=== PATIENT | female | born 1975 | race Caucasian/White ===

== ENCOUNTER 2017-08-11 09:12 | Emergency (ER) | payer SELFPAY ==
[~2017-08-11] VITALS: Ht 172.7 cm; Wt 72.6 kg
[~2017-08-11 09:12] MED LIST: CEPH500 PO; CYCL10 PO; IBUP600 PO; IBUP800 PO; Ultram50 MG PO; Veetids 500500 MG PO
[2017-08-11] MEDS ORDERED: Sudogest30 MG PO (10:07)
[2017-08-11] MEDS ORDERED: Flonase 0.05% N16 GM (10:07)
== END 2017-08-11 10:18 | disposition home or self-care (01) ==
LOC: ER 09:12
DX: J06.9 Acute upper respiratory infection, unspecified (principal); Z88.5 Allergy status to narcotic agent
CPT/HCPCS: 87081; 87147; 87430; 99283; J1100

== ENCOUNTER → 2020-09-23 | Outpatient (CLI) | payer OTHER ==
[~2020-09-23] MED LIST changes: +Flonase 0.05% N16 GM; +Sudogest30 MG PO
[2020-09-23 17:55] LABS: BASOPHILS ABSOLUTE AUTO 0.07 K/mm3 (0.00-0.23); BASOPHILS PERCENT AUTO 1 % (0-2); EOSINOPHILS ABSOLUTE AUTO 0.23 K/mm3 (0.00-0.68); EOSINOPHILS PERCENT AUTO 3 % (0-6); Hematocrit 38.6 % (33.0-51.0); Hemoglobin 13.2 g/dL (11.5-16.0); IMMATURE GRAN ABSOLUTE AUTO 0.02 K/mm3 (0.00-0.10); IMMATURE GRAN PERCENT AUTO 0 % (0-1); LYMPHOCYTES ABSOLUTE AUTO 2.77 K/mm3 (0.84-5.20); LYMPHOCYTES PERCENT AUTO 30 % (21-46); MONOCYTES ABSOLUTE AUTO 0.52 K/mm3 (0.16-1.47); MONOCYTES PERCENT AUTO 6 % (4-13); Mean Corpuscular HGB 29.5 pg (26.0-34.0); Mean Corpuscular HGB Conc 34.2 g/dL (31.5-36.5); Mean Corpuscular Volume 86 fL (80-100); Mean Platelet Volume 10.7 fL (9.1-12.4); NEUTROPHILS ABSOLUTE AUTO 5.64 K/mm3 (1.96-9.15); NEUTROPHILS PERCENT AUTO 61 % (41-73); Platelet Count 366 K/mm3 (150-400); RDW Coefficient Variation 12.5 % (11.7-14.2); RDW Standard Deviation 39.1 fL (35.1-46.3); Red Blood Cell Count 4.48 M/mm3 (3.80-5.20); White Blood Cell Count 9.25 K/mm3 (4.00-11.30)
[2020-09-23 18:16] LABS: Albumin/Globulin Ratio 1.1 (0.8-1.8); Bilirubin, Total 0.3 mg/dL (0.1-1.0); Bun/Creatinine Ratio 10.1 (12.0-20.0); Calcium, Blood 9.2 mg/dL (8.5-10.1); Creatinine, Blood 1.09 mg/dL (0.40-1.00); Globulin, Blood 3.7 g/dL (2.2-4.0); Potassium, Blood 3.8 mmol/L (3.5-5.5); Thyroid Stimulating Hormone 1.76 uIU/mL (0.360-4.800); Total Protein, Blood 7.7 g/dL (6.4-8.2)
== END | disposition home or self-care (01) ==
LOC: LAB SHORT 17:47 → LAB 17:47
PROVIDERS: Physician Assistant
DX: R53.83 Other fatigue (principal)
CPT/HCPCS: 80053; 84443; 85025

== ENCOUNTER 2021-06-28 10:59 | Day surgery (SDC) | payer OTHER ==
[~2021-06-28] VITALS: Ht 172.7 cm; Wt 94.9 kg
--- NOTE | 2021-06-28 11:56 | NUR ---
06/28/21 1156 BELIA BRO 1% LIDOCAINE 4MLS INJECTED BY DR. GARCIA INTO RIGHT HAND AT START OF CASE
--- NOTE | 2021-06-28 12:31 | NUR ---
06/28/21 1231 BRAXTON ROWE PT RECIEVED ZOFRAN FOR NAUSEA , STATES IT IS A LITTLE BETTER. PAIN IS 7/10 HEADACHE- PT DAILY CAFFEINE DRINKER. PT DECLINES TAKING IV PAIN MEDICATION, WOULD LIKE TO TAKE EXCEDRINE ONCE HOME
== END 2021-06-28 13:17 | disposition home or self-care (01) ==
LOC: ORSCSDS 10:59
PROVIDERS: Orthopaedic Surgery
PROC: 01N50ZZ Release Median Nerve, Open Approach (ICD-10-PCS; principal; 2021-06-28 12:30)
DX: G56.01 Carpal tunnel syndrome, right upper limb (principal); E66.9 Obesity, unspecified; Z68.31 Body mass index [BMI] 31.0-31.9, adult; Z79.899 Other long term (current) drug therapy
CPT/HCPCS: J0690; J1100; J2250; J2405; J3010; J7120

== ENCOUNTER 2021-08-30 22:44 | Emergency (ER) | payer OTHER | END 2021-08-30 23:54 | disposition left against medical advice (07) | LOC: ER 22:44 | DX: R19.7 Diarrhea, unspecified (principal); Z53.21 Procedure and treatment not carried out due to patient leaving prior to being seen by health care provider | CPT/HCPCS: 99281 ==

== ENCOUNTER → 2021-11-01 | Outpatient (CLI) | payer OTHER ==
[2021-11-03 08:10] LABS: HPV 16 Negative (Negative); HPV 18 Negative (Negative); HPV OTHER HR TYPES Negative (Negative)
== END | disposition home or self-care (01) ==
LOC: LAB 17:19 → LAB SHORT 17:19
PROVIDERS: Obstetrics & Gynecology
DX: Z01.419 Encounter for gynecological examination (general) (routine) without abnormal findings (principal)
CPT/HCPCS: 87624; G0123

== ENCOUNTER 2023-01-30 11:54 | Day surgery (SDC) | payer OTHER ==
[~2023-01-30] VITALS: Ht 172.7 cm; Wt 84.2 kg
[2023-01-30] MEDS ORDERED: EXCEDRIN MIGRAINE (13:16)
[2023-01-30 14:55] VITALS: BP 117/71
== END 2023-01-30 15:40 | disposition home or self-care (01) ==
LOC: ORSCSDS 11:54
PROVIDERS: Orthopaedic Surgery
PROC: 01N50ZZ Release Median Nerve, Open Approach (ICD-10-PCS; principal; 2023-01-30 13:30)
DX: G56.02 Carpal tunnel syndrome, left upper limb (principal)
CPT/HCPCS: J0690; J1100; J2001; J2250; J2405; J2704; J3010; J7120

== ENCOUNTER 2023-02-11 09:30 | Observation (INO) | payer OTHER ==
[~2023-02-11] VITALS: Ht 172.7 cm; Wt 81.7 kg
[~2023-02-11 09:30] MED LIST changes: +EXCEDRIN MIGRAINE
[2023-02-11 10:28] LABS: BASOPHILS PERCENT AUTO 1 % (0-2); EOSINOPHILS ABSOLUTE AUTO 0.38 K/mm3 (0.00-0.68); EOSINOPHILS PERCENT AUTO 3 % (0-6); Hematocrit 44.5 % (33.0-51.0); IMMATURE GRAN ABSOLUTE AUTO 0.03 K/mm3 (0.00-0.10); IMMATURE GRAN PERCENT AUTO 0 % (0-1); LYMPHOCYTES ABSOLUTE AUTO 2.04 K/mm3 (0.84-5.20); LYMPHOCYTES PERCENT AUTO 15 % (21-46); MONOCYTES ABSOLUTE AUTO 0.82 K/mm3 (0.16-1.47); MONOCYTES PERCENT AUTO 6 % (4-13); Mean Corpuscular HGB 29.8 pg (26.0-34.0); Mean Corpuscular HGB Conc 33.7 g/dL (31.5-36.5); Mean Corpuscular Volume 88 fL (80-100); Mean Platelet Volume 11.1 fL (9.1-12.4); NEUTROPHILS PERCENT AUTO 75 % (41-73); Platelet Count 408 K/mm3 (150-400); RDW Coefficient Variation 12.5 % (11.7-14.2); RDW Standard Deviation 40.2 fL (35.1-46.3); Red Blood Cell Count 5.04 M/mm3 (3.80-5.20); White Blood Cell Count 13.37 K/mm3 (4.00-11.30)
[2023-02-11 10:55] LABS: Albumin, Blood 3.7 g/dL (3.4-5.0); Albumin/Globulin Ratio 0.8 (0.8-1.8); Bilirubin, Total 0.6 mg/dL (0.1-1.0); Bun/Creatinine Ratio 15.2 (12.0-20.0); Calcium, Blood 9.6 mg/dL (8.5-10.1); Creatinine, Blood 0.79 mg/dL (0.40-1.00); Globulin, Blood 4.5 g/dL (2.2-4.0); Potassium, Blood 4.2 mmol/L (3.5-5.5); Total Protein, Blood 8.2 g/dL (6.4-8.2)
--- NOTE | 2023-02-11 13:06 | NUR ---
ATTEMPTED TO CALL FOR REPORT, PER ER, RN NOT AVALIABLE.
[2023-02-11 13:52] VITALS: BP 113/69
--- NOTE | 2023-02-11 14:03 | NUR ---
PT ARRIVED TO THE ROOM FROM ER AT APPROXIMATELY 1345. PT REPORTS PAIN IS MANAGED BUT IS NAUSEATED. PT IS ALERT AND ORIENTED. PT PROVIDED WITH CALL LIGHT AND EDUCATED TO USE. DR. PRINCE NOTIFIED OF PT'S ARRIVAL TO THE ROOM.
[2023-02-11 15:44] VITALS: BP 123/75
[2023-02-11 19:26] VITALS: BP 124/78
--- NOTE | 2023-02-11 19:46 | NUR ---
SHIFT SUMMARY PT WAITING FOR SURGERY, POSSIBLY TOMORROW. PT GETTING IV ABX AND PAIN MEDICATION. PAIN MANAGED WITH DILAUDID. PT HAS HAD SOME NAUSEA, MANAGED WITH ZOFRAN. PT IS INDEPENDENT IN THE ROOM. PT PARTICIPATED WITH BEDSIDE REPORT, SHE WAS ALERT AND ORIENTED, PAIN MANAGED DURING REPORT. CALL LIGHT WITHIN REACH.
[2023-02-11 23:40] VITALS: BP 156/83
[2023-02-12] VITALS (16 sets, daily range): BP systolic 96–151; BP diastolic 58–83
--- NOTE | 2023-02-12 08:33 | NUR ---
SUMMARY PT MED FOR PAIN AND NAUSEA LAST NIGHT EMESIS X1 .
--- NOTE | 2023-02-12 08:46 | NUR ---
PT TAKEN TO SURGERY AT THIS TIME.
--- NOTE | 2023-02-12 08:55 | NUR ---
ASSUMED CARE, REPORT FROM HUA TRAYLOR
--- NOTE | 2023-02-12 08:57 | NUR ---
SUMMARY PT NPO TONIGHT AND OUT TO OR PER LUDMILA THIS AM.
--- NOTE | 2023-02-12 09:56 | NUR ---
02/12/23 0956 Miranda Elizabeth PT ON SCHEDULED ANTIBIOTICS AND RECIEVED PRIOR TO ARRIVAL TO OR.
--- NOTE | 2023-02-12 14:29 | NUR ---
PT ARRIVED BACK TO THE ROOM FROM PACU AT APPROXIMATELY 1245. PT DROWSY BUT WAKES WHEN SPOKEN TO AND ORIENTED. PT REPORTS PAIN AND NAUSEA HAVE IMPROVED. LAP SITES X3 PRESENT, COVERED WITH GAUZE AND TEGADERM. RUQ JUAN DRAIN HOLDING SUCTION, SEROSANGUINOUS DRAINAGE IN TUBE. PT RESTING IN BED, CALL LIGHT WITHIN REACH.
--- NOTE | 2023-02-12 17:35 | NUR ---
SHIFT SUMMARY PT IS POD#[address] FROM [address] [place] WITH DR. PRINCE. LAP SITES X3. UMBILICAL LAP SITE HAD A SMALL AMOUNT OF DRAINAGE, DRESSING CHANGED THIS EVENING. JUAN SITE TO THE RUQ, DRESSING REINFORCED WITH DRAIN GAUZE, SMALL AMOUNT OF SEROSANGUINOUS DRAINAGE. PT IS INDEPENDENT IN THE ROOM BUT HAS REQUIRED HELP WITH LINES WHEN GETTING OOB TO THE BATHROOM. PT USING HER CALL LIGHT APPROPRIATELY. PT HAS DENIED NAUSEA SINCE ARRIVAL TO THE ROOM. SHE REPORTS PAIN IS TOLERABLE WITHOUT PAIN MEDICATION. PT GETTING IV ABX. HOPEFUL FOR DISCHARGE TOMORROW IF PT IS ABLE TO MEET ALL GOALS. PT ENCOURAGED TO AMBULATE HOURLY AND TO CALL FOR ASSISTANCE IF NEEDED.
--- NOTE | 2023-02-12 19:28 | NUR ---
BEDSIDE REPORT GIVEN TO NOC LAYTON TAI. PT ALERT, ORIENTED AND PARTICIPATED WITH REPORT. EVAN MANAGED AT TIME OF REPORT. CALL LIGHT WITHIN REACH.
--- NOTE | 2023-02-13 04:21 | NUR ---
SUMMARY- NO NEW ISSUES NOTED. PT DRESSING C/D/I AND DRAIN IS PRODUCING S/S FLUID. PT WALKED THE OCAMPO BEFORE BED AND TOLERATED IT WELL. PT HAS BEEN SLEEPING COMFORTABLY THROUGHOUT SHIFT. CALL LIGHT IN REACH.
[2023-02-13 05:23] VITALS: BP 112/63
[2023-02-13 07:16] VITALS: BP 128/89
--- NOTE | 2023-02-13 07:30 | NUR ---
Received report from noc RN. Patient is awake and used call light as pump is beeping, VS recorded. She is alert and oriented and is able to communicate her needs. She is on RA and sats 99% on RA. She is up with SBA r/t lines and pump. She denies current pain and site C/D/I. Her plan is to go home today.
--- NOTE | 2023-02-13 11:23 | NUR ---
Patient has stated she hs headache and medicated per MAR. Dr Torres in room and will be discharging. He pulled JUAN drain andplaced dressing.Spoke with CN and she will do discharge.
[2023-02-13] MEDS ORDERED: Norco 5-325 Ta1 EACH PO (11:39)
--- NOTE | 2023-02-13 13:00 | NUR ---
IV pulled intact. Patientreceived written discharge instructions and post op with wound/opsite care. She returned understanding. She gathered all her belongings and was taken out to POV and went home with family.
== END 2023-02-13 13:07 | disposition home or self-care (01) ==
LOC: ER 09:30 → SURS 09:31
PROVIDERS: Physician Assistant; ADMIT Surgery
PROC: 0FT44ZZ Resection of Gallbladder, Percutaneous Endoscopic Approach (ICD-10-PCS; principal; 2023-02-11)
DX: K80.12 Calculus of gallbladder with acute and chronic cholecystitis without obstruction (principal); Z88.5 Allergy status to narcotic agent; Z79.899 Other long term (current) drug therapy
CPT/HCPCS: 76705; 80053; 83605; 83690; 85025; 87040; 88304; 94760; 96361; 96365; 96366; 96367; 96375; 96376; 99285-25; A9270; C1729; G0378; J0295; J1170; J1885; J2405; J2543; J7030; J7050; J7120

== ENCOUNTER 2023-11-20 11:34 | Emergency (ER) | payer OTHER ==
[~2023-11-20] VITALS: Ht 172.7 cm; Wt 90.7 kg
[~2023-11-20 11:34] MED LIST changes: +Norco 5-325 Ta1 EACH PO
[2023-11-20 11:38] VITALS: BP 149/87
[2023-11-20] MEDS ORDERED: Robaxin750 MG PO (12:34)
== END 2023-11-20 13:09 | disposition home or self-care (01) ==
LOC: ER 11:34
DX: M54.2 Cervicalgia (principal); Z79.899 Other long term (current) drug therapy; Z88.5 Allergy status to narcotic agent
CPT/HCPCS: 99283